=== PATIENT | male | born 1975 | race Caucasian/White ===

== ENCOUNTER 2018-02-13 21:35 | Inpatient (IN) | payer OTHER, MEDICAID, SELFPAY | END 2018-02-16 10:40 | disposition home or self-care (01) | DRG 603 | PROVIDERS: Admitting Provider Internal Medicine; Family Provider Internal Medicine; PCP Internal Medicine; Visit Provider Internal Medicine | DX: L03.115 Cellulitis of right lower limb (principal); Z68.43 Body mass index [BMI] 50.0-59.9, adult; E66.01 Morbid (severe) obesity due to excess calories | CPT/HCPCS: 36415; 80048; 80202; 85025; 85651; J1650; J1885; J3370 ==